=== PATIENT | female | born 1965 | race African-American/Black ===

== ENCOUNTER 2021-04-21 19:15 | Emergency (ER) | payer OTHER ==
[~2021-04-21] VITALS: Ht 154.9 cm; Wt 72.7 kg
[2021-04-21 19:27] VITALS: BP 154/90
[2021-04-21] MEDS ORDERED: PRED-409 PO (19:40)
[2021-04-21] MEDS ORDERED: KETOROLAC TROMETHAMINE 30 MG/ML VIAL IM ONE (20:45)
[2021-04-21] MEDS ORDERED: ACETAMINOPHEN 500 MG TABLET PO ONE (20:45)
[2021-04-21] MEDS ORDERED: LIDOCAINE 5% TRANSDERMAL PATCH TD ONE (20:45)
== END 2021-04-21 22:29 | disposition home or self-care (01) ==
LOC: EMS 19:37
DX: M71.22 Synovial cyst of popliteal space [Baker], left knee (principal)
CPT/HCPCS: 93970; 96372; 99284; J1885

== ENCOUNTER 2022-01-27 13:15 | Emergency (ER) | payer OTHER ==
[~2022-01-27] VITALS: Ht 154.9 cm; Wt 69.1 kg
[~2022-01-27 13:15] MED LIST: PRED-549 PO
[2022-01-27] MEDS ORDERED: ACETAMINOPHEN 500 MG TABLET PO ONE (15:15)
[2022-01-27] MEDS ORDERED: CYCLOBENZAPRINE HCL 10 MG TABLET PO ONE (15:15)
[2022-01-27 16:00] VITALS: BP 135/77
[2022-01-27] MEDS ORDERED: KETOROLAC TROMETHAMINE 30 MG/ML VIAL IM ONE (16:00)
== END 2022-01-27 17:28 | disposition home or self-care (01) ==
LOC: EMS 13:15
DX: M79.10 Myalgia, unspecified site (principal)
CPT/HCPCS: 99283; J1885

== ENCOUNTER 2023-04-08 15:57 | Emergency (ER) | payer OTHER ==
[~2023-04-08] VITALS: Ht 154.9 cm; Wt 81.8 kg
[2023-04-08 15:58] VITALS: TEMP 98.7
[2023-04-08] MEDS ORDERED: BACLOFEN 10 MG TABLET PO ONE (16:45)
[2023-04-08] MEDS ORDERED: LIDOCAINE 5% TRANSDERMAL PATCH TD ONE (16:45)
[2023-04-08] MEDS ORDERED: BACL10TA PO (17:36)
[2023-04-08] MEDS ORDERED: LIDO700A15 TP (17:37)
[2023-04-08 18:00] VITALS: BP 114/76; PULSE 95; RESP 19
== END 2023-04-08 18:05 | disposition home or self-care (01) ==
LOC: EMS 16:06
DX: M54.32 Sciatica, left side (principal); J44.9 Chronic obstructive pulmonary disease, unspecified; Z91.013 Allergy to seafood
CPT/HCPCS: 93971; 99284; Z7502; Z7610

== ENCOUNTER 2023-11-18 09:15 | Emergency (ER) | payer OTHER ==
[~2023-11-18] VITALS: Ht 154.9 cm; Wt 81.8 kg
[~2023-11-18 09:15] MED LIST changes: +ALBU18HF12 IH; +ALBU2.5V39 NEB; +BACL20TA PO; +CARV3.1231 PO; +CEFU500T41 PO; +CLOT30SO2 TP; +DABI150C2 PO; +DICL100G60 TP; +FAMO20TA8 PO; +FLUT12AE3 IH; +FLUT16SP NASAL; +FURO40TA5 PO; +IPRA0.2S49 NEB; +IPRA3AMP24 NEB; +LORA10TA7 PO; +MONT-40 PO; +POTA-206 PO; -PRED-549 PO; +PRED-554 PO; +PRED-729 PO; +PROM118S5 PO; +SEMA0.253 SQ; +TERB250T90 PO; +THEO300T52 PO; +TRIA15CR58 TP
[2023-11-18 09:19] VITALS: BP 146/91; PULSE 102; RESP 18; TEMP 98.1
[2023-11-18] MEDS ORDERED: ALBU1.252 NEB (09:42)
== END 2023-11-18 09:56 | disposition home or self-care (01) ==
LOC: EMS 09:15
DX: J44.9 Chronic obstructive pulmonary disease, unspecified (principal); Z91.013 Allergy to seafood
CPT/HCPCS: 99281; Z7502